=== PATIENT | male | born 1980 | race African-American/Black ===

== ENCOUNTER 2019-03-25 19:03 | Observation (INO) | payer BC ==
[2019-03-25 19:15] VITALS: BMI 59.3
--- NOTE | 2019-03-25 19:16 | PDOC ---
Rapid Medical Evaluation Time Seen by Provider: 03/25/19 19:12 Medical Evaluation: Allergies Allergy/AdvReac Type Severity Reaction Status Date / Time No Known Allergies Allergy Verified 02/11/16 20:01 03/25/19 19:13 This patient had a brief in-person evaluation cc: " I am in a-fib" complaining of palpitations PE: diaphoretic slightly labored breathing appears anxious pedal edema orders: iv access, ekg and labs This patient will proceed to the Ed for further evaluation Discharge Disposition - Diagnosis Palpitations - Referrals - Patient Instructions - Post Discharge Activity
--- NOTE | 2019-03-25 19:41 | PDOC ---
History of Present Illness - General Chief Complaint: Chest Pain Stated Complaint: CHEST PAIN Time Seen by Provider: 03/25/19 19:12 - History of Present Illness Initial Comments: 03/25/19 19:36 38 yo M with h/o HTN, JADIEL, A-fib (on Diltiazem), who p/w retrosternal chest pain , diaphoresis, SOB. Patient reports acute onset of retrosternal, non radiating, chest pressure/discomfort at rest beginning at 3:00 PM and resolving following 1 hour. Also endorses palpitations, leg swelling x 1 day. and Reyes today with no identifiable triggers or alleviators. Endorses adherence to Daily Diltiazem, and Aspirin 325 mg. Denies home Patient denies FARMER, vision change, cough, wheezing, orthopena, PND, leg pain, N/V , F,C, urinary complaints, hematuria, BPR, abdominal pain, diarrhea, constipation, lightheadedness, weakness, sensory changes. PMHx: as noted above. Denies h/o stent placement, CABG. ROS: as noted SHx: Socail Etoh. Last Etoh months ago. Denies tobacco use, IVDA Allergies:NKDA Cardiology: Dr. Sellers PMD: Not on staff 03/25/19 21:16 Past History - Past Medical History Allergies/Adverse Reactions: Allergies Allergy/AdvReac Type Severity Reaction Status Date / Time No Known Allergies Allergy Verified 03/25/19 21:02 Home Medications: Ambulatory Orders Aspirin [ASA -] 325 mg PO DAILY #100 tablet 12/12/14 Diltiazem Cd [Cardizem Cd -] 240 mg PO DAILY #30 cap.cd.24h 12/12/14 Anemia: No Asthma: No Cardiac Disorders: Yes (Atrial Fibrillation) CVA: No COPD: No Dementia: No Diabetes: No HTN: Yes Hypercholesterolemia: No Liver Disease: No Seizures: No Thyroid Disease: No - Surgical History Abdominal Surgery: No Cardiac Surgery: No Cholecystectomy: No Lung Surgery: No Neurologic Surgery: No - Family Disease History Family Disease History: Heart Disease: Father ([place] in his 50s, survived) - Immunization History Immunization Up to Date: Yes - Suicide/Smoking/Psychosocial Hx Smoking Status: No Smoking History: Never smoked Have you smoked in the past 12 months: No Number of Cigarettes Smoked Daily: 0 Hx Alcohol Use: No Drug/Substance Use Hx: No Substance Use Type: None Hx Substance Use Treatment: No Review of Systems - Review of Systems Comments:: 03/25/19 19:39 GENERAL/CONSTITUTIONAL: No fever or chills. No weakness. HEAD, EYES, EARS, NOSE AND THROAT: No change in vision. No ear pain or discharge. No sore throat. CARDIOVASCULAR: + Chest pain,shortness of breath, palpitations RESPIRATORY: No cough, wheezing, or hemoptysis. GASTROINTESTINAL: No nausea, vomiting, diarrhea or constipation. GENITOURINARY: No dysuria, frequency, or change in urination. MUSCULOSKELETAL: No joint or muscle swelling or pain. No neck or back pain. SKIN: No rash NEUROLOGIC: No headache, vertigo, loss of consciousness, or change in strength/ sensation. ENDOCRINE: No increased thirst. No abnormal weight change HEMATOLOGIC/LYMPHATIC: No anemia, easy bleeding, or history of blood clots. ALLERGIC/IMMUNOLOGIC: No hives or skin allergy. *Physical Exam - Vital Signs Last Vital Signs Temp Pulse Resp BP Pulse Ox 98.1 F 78 22 H 178/115 H 96 03/25/19 19:12 03/25/19 19:12 03/25/19 19:12 03/25/19 19:12 03/25/19 19:12 - Physical Exam Comments: 03/25/19 19:40 GENERAL: Awake, alert, and fully oriented, in no acute distress HEAD: Diaphoresis. No signs of trauma, normocephalic, atraumatic EYES: PERRLA, EOMI, sclera anicteric, conjunctiva clear ENT: Hearing grossly normal, nares patent, oropharynx clear without exudates. Moist mucosa NECK: Normal ROM, supple, no lymphadenopathy, JVD, or masses LUNGS:+ Diffuse exp wheezing. Neg Rales. HEART: Regular rate and rhythm, normal S1 and S2, no murmurs, rubs or gallops, peripheral pulses normal and equal bilaterally. ABDOMEN: Soft, nontender, normoactive bowel sounds. No guarding, no rebound. No masses EXTREMITIES :2+ pitting edema. Normal inspection, Normal range of motion. No clubbing or cyanosis. NEUROLOGICAL: Cranial nerves II through XII grossly intact. Normal speech, normal gait, no focal sensorimotor deficits SKIN: Warm, Dry, normal turgor, no rashes or lesions noted Heart Score/ECG Review - History History: Slightly suspicious - Electrocardiogram EKG: Non specific repolarization disturbance - Age Age: </= 45 - Risk Factors Risk Factors Heart Score: Yes Hx Hypercholesterolemia, Yes Hx Hypertension, Yes Positive family hx of cardiac disease, Yes Hx Obesity Based on the list above the patient has:: >/=3 risk factors or Hx atherosclerotic disease - Troponin Troponin: </= normal limit - Score Heart Score - Total: 3 ED Treatment Course - LABORATORY CBC & Chemistry Diagram: 03/25/19 19:52 03/25/19 19:52 Medical Decision Making - Medical Decision Making 03/25/19 19:41 38 yo M with h/o HTN, JADIEL, A-fib (on Diltiazem), who p/w retrosternal chest pain , diaphoresis, SOB. RR 22, BP 178/115, vitals otherwise wnl. Physical exam notable for diaphoresis, diffuse wheezing. ACS/VA r/o. Low risk PE based on Wells criteria. Will evaluate for decompensated heart failure, asthma/COPD, cardiac dysarrythmias, hypoglycemia, electrolyte abnml, metabolic and toxic derangements, acid-base disturbances,PNA/ infection. Ed Course: EKG: A-fib with RvR, incomplete RBBB, with absent EARNESTINE, STD. + LAD. Nml R wave progression. Absent Q waves.Changed from prior EKG (02-13-16). Diltiazem, Methylpred, Xopenex CBC: Unremarkable K+ 3.[address] Harper Israel Admit to tele Dr. Bermudez *DC/Admit/Observation/Transfer Diagnosis at time of Disposition: Palpitations Atrial fibrillation Qualifiers: Atrial fibrillation type: paroxysmal Qualified Code(s): I48.0 - Paroxysmal atrial fibrillation CHF (congestive heart failure) Qualifiers: Heart failure chronicity: acute - Discharge Dispostion Condition at time of disposition: Stable Decision to Admit order: Yes - Referrals Referrals: Bryan Miller [Primary Care Provider] - - Patient Instructions Printed Discharge Instructions: DI for Atypical Chest Pain - Post Discharge Activity
[2019-03-25] MEDS ORDERED: dilTIAZem HCL 50 MG/10 ML - 10 ML VIAL IVPUSH ONE (20:14)
[2019-03-25] MEDS ORDERED: SODIUM CHLORIDE 1,000 ML IV STA (20:14)
[2019-03-25] MEDS ORDERED: LEVALBUTEROL HCL 0.31 MG/3 ML VIAL.NEB IH ONE (20:34)
[2019-03-25 20:35] LABS: HEMATOCRIT 45.6 % (35.4-49); LYMPH % 33.1 % (8-40); MCHC 32.9 g/dl (32.0-35.9); MEAN CELL VOLUME 88.3 fl (80-96); MEAN PLT VOLUME 10.9 fl (7.5-11.1); MONO % 9.9 % (3.8-10.2); RBC 5.17 M/mm3 (4.00-5.60); RDW 14.5 % (11.9-15.9); WHITE BLOOD COUNT 6.8 K/mm3 (4.0-10.0)
[2019-03-25] MEDS ORDERED: methylPREDNISolone NA SUCC 125 MG/2 ML VIAL IVPUSH ONE ×2 (20:36→22:00)
[2019-03-25] MEDS ORDERED: dilTIAZem HCL 50 MG/10 ML - 10 ML VIAL ONE (20:39)
[2019-03-25] MEDS ORDERED: methylPREDNISolone NA SUCC 125 MG/2 ML VIAL ONE ×2 (20:39→21:25)
[2019-03-25 20:45] LABS: INR 1.07 (0.83-1.09); PROTHROMBIN TIME (PATIENT) 12.6 SEC (9.7-13.0)
[2019-03-25 21:04] LABS: PLATELET COUNT 189 K/MM3 (134-434); PLATELET ESTIMATE ADEQUATE
[2019-03-25 21:27] LABS: ALBUMIN 4.2 g/dl (3.4-5.0); ALK PHOS 68 U/L (45-117); ANION GAP 8 MMOL/L (8-16); BILIRUBIN,TOTAL 0.6 mg/dL (0.2-1); BLOOD UREA NITROGEN 9 mg/dL (7-18); CALCIUM 9.3 mg/dL (8.5-10.1); CHLORIDE 104 mmol/L (98-107); CO2 30 mmol/L (21-32); GLUCOSE,RANDOM 86 mg/dL (74-106); N-TERMINAL BNP 24.8 pg/ml (5-125); POTASSIUM 3.2 mmol/L (3.5-5.1); SGOT/AST 23 U/L (15-37); SGPT/ALT 43 U/L (13-61); SODIUM 142 mmol/L (136-145); TOT PROT 8.3 g/dl (6.4-8.2)
[2019-03-25] MEDS ORDERED: DILTIAZEM INJECTION 125 MG in SODIUM CHLORIDE 100 ML IVPB SCH (21:30)
[2019-03-25] MEDS ORDERED: POTASSIUM CHLORIDE TABS 20 MEQ TABLET.ER (FP) PO ONE ×2 (21:50→22:16)
--- NOTE | 2019-03-25 22:20 | HP ---
Admitting History and Physical - Primary Care Physician PCP: None - Admission Chief Complaint: Palpitations and SOB History of Present Illness: Pt is a 38 yo Obese male with PMHx of HTN, afib, presenting with palpitations and SOB x 1 day. Pt reported palpitations associated with rapid heart rate noted on pulse oximetry today while laying down. There was associated SOB, worse with exertion and relieved with rest. Patient reported a vague chest. Patient has also noted recurrent bilateral leg swelling, worse over the past 3 days ( not resolving in the am). Pt reports compliance on diltiazem and ASA, last dose today. He endorses poor diet (increased take out), but no fevers, no cough, no URTI, no dysuria or change in bowel habits. Patient was diagnosed with afib since 2002, has never been cardioverted or on AC. Pt reports similar symptoms in June 2018. He has had stress ECHO in past but missed a recently scheduled follow up with his aspnet developer Dr Sellers. He presented with afib with RVR-HR up to 140s with BP up to 178/115 EKG: afib with RVR-130, LAD, no EARNESTINE/STD, poor Rwave progression, QTC-459 Hypokalemia 3.2 In the ED he received iv solumed, levalbuterol, iv diltiazem and then was put on a ditiazem drip, potassium Since being in the ED, the SOB has since improved ECHO 2016: Mitral calcification, concentric hypertrophy, Mild MR History Source: Patient Limitations to Obtaining History: No Limitations - Past Medical History Cardiovascular: Yes: AFIB, HTN Musculoskeletal: Yes: Other - Past Surgical History Past Surgical History: Yes: None - Smoking History Smoking history: Never smoked Have you smoked in the past 12 months: No Aproximately how many cigarettes per day: 0 - Alcohol/Substance Use Hx Alcohol Use: No - Social History ADL: Independent Home Medications - Allergies Allergies/Adverse Reactions: Allergies Allergy/AdvReac Type Severity Reaction Status Date / Time No Known Allergies Allergy Verified 03/25/19 21:02 - Home Medications Home Medications: Ambulatory Orders Aspirin [ASA -] 325 mg PO DAILY #100 tablet 12/12/14 Diltiazem Cd [Cardizem Cd -] 240 mg PO DAILY #30 cap.cd.24h 12/12/14 Review of Systems - Review of Systems Constitutional: denies: Chills, Diaphoresis, Fever, Lethargy Eyes: denies: Blurred Vision HENT: denies: Difficult Swallowing Cardiovascular: reports: Chest Pain, Edema, Palpitations, Shortness of Breath Respiratory: reports: Exercise Intolerance, SOB on Exertion. denies: Cough, Hemoptysis, Orthopnea, Wheezing Gastrointestinal: denies: Abdominal Pain, Constipation Genitourinary: denies: Burning, Dysuria Neurological: denies: Change in LOC, Change in Speech, Confusion, Dizziness Endocrine: denies: Excessive Sweating Hematology/Lymphatic: denies: No Symptoms Psychiatric: denies: No Symptoms Physical Examination Vital Signs: Vital Signs Temperature 98.1 F 03/25/19 19:12 Pulse Rate 139 H 03/25/19 22:10 Respiratory Rate 20 03/25/19 20:53 Blood Pressure 153/10 L 03/25/19 22:10 O2 Sat by Pulse Oximetry (%) 95 03/25/19 20:53 Constitutional: Yes: No Distress, Calm, Obese Eyes: Yes: Conjunctiva Clear, EOM Intact, PERRL HENT: Yes: Atraumatic Neck: Yes: Supple Cardiovascular: Yes: Tachycardia, Pulse Irregular, S1, S2 Respiratory: Yes: CTA Bilaterally Gastrointestinal: Yes: Normal Bowel Sounds, Abdomen, Obese Edema: Yes Edema: LLE: Trace, RLE: Trace Peripheral Pulses WNL: Yes Neurological: Yes: Alert, Oriented. No: Confusion, Dysarthria, Facial Droop, Lethargy Psychiatric: Yes: Alert, Oriented Labs: CBC, BMP 03/25/19 19:52 03/25/19 19:52 Imaging - Results Chest X-ray: Image Reviewed Assessment/Plan Assessment /Plan Pt is a 38 yo Obese male with PMHx of HTN, afib, presenting with palpitations and SOB x 1 day. Assessment: HTN Afib w/RVR HTNsive Emergency SOB R/O ACS Morbid Obesity Plan: Afib w/RVR- could be due to electrolyte imbalance- hypkalemia, corrected, check Mg Afib also in setting of HTNsive emergency Cont diltiazem Lisinopril 20mg stat Cont ditiazem 240 ER Stop ditiazem drip Metoprolol 50mg PO for HR >110 ECHO Cardio consult CHADVASC-1, on ASA SOB R/O ACS Trend trops Initial trop negative D dimer <500 CXR- no congestive changes BNP 200s Could be in setting of increase demand with RVR Morbid obesity Sodium controlled diet Needs referral for bariatric sx Lipid profile HgbA1c HTN Stat Lisinopril 20mg Sodium controlled diet Diet and exercise FEN No standing fluids Monitor lytes repelte as needed Sodium controlled diet PPx Heparin sq Tele obs Visit type - Emergency Visit Emergency Visit: Yes ED Registration Date: 03/25/19 Care time: The patient presented to the Emergency Department on the above date and was hospitalized for further evaluation of their emergent condition. - New Patient This patient is new to me today: Yes Date on this admission: 03/26/19 - Critical Care Critical Care patient: No
--- NOTE | 2019-03-25 22:27 | PDOC ---
Documentation entered by Mckenzie Michelle SCRIBE, acting as scribe for Alfreda Monsalev DO. Alfreda Monsalve DO: This documentation has been prepared by the Viviana roberts Adrianna, SCRIBE, under my direction and personally reviewed by me in its entirety. I confirm that the documentation accurately reflects all work, treatment, procedures, and medical decision making performed by me. Attending Attestation - Resident Resident Name: Leeroy Black - ED Attending Attestation I have performed the following: I have examined & evaluated the patient, The case was reviewed & discussed with the resident, I agree w/resident's findings & plan - HPI HPI: The patient is a 38 year old male, with a significant PMH of obesity, hypertension, hyperlipidemia, and Afib (on Diltiazem), who presents to the emergency department today complaining of chest pain for a couple of hours. Patient describes his chest pain as a pressure, which is intermittent, severe , and most prominent retrosternal. He notes his chest pain lasted for one hour then self-resolved. Patient endorses associated diaphoresis and dyspnea on exertion. Patient reports having an ECHO done 2 years ago, which was unremarkable at that time. He endorses taking all of his daily medications today. The patient denies headache and dizziness. Denies fever, chills, nausea, vomit, diarrhea and constipation. Denies dysuria, frequency, urgency and hematuria. Allergies: NKA Past surgical history: None reported Social history: Occasional social EtOH consumption (but notes he hasnt drank in the past 2 months). Denies illicit drug use. PCP: Dr. Bryan Miller Customs Patrol Officer: Dr. Richmond Sellers 03/25/19 20:35 - Physicial Exam PE: Agree with resident exam. 03/25/19 20:35 - Critical Care Time Total Critical Care Time: 90 Critical Care Statement: The care of this patient involved high complexity decision making to prevent further life threatening deterioration of the patient 's condition and/or to evaluate & treat vital organ system(s) failure or risk of failure. - Medical Decision Making 03/25/19 22:25 38-year-old male with chest pain and palpitations found to be in rapid atrial fibrillation on arrival Troponin and BNP are within normal limits Patient was found be mildly hypokalemic Ventricular rate decreased to the 120s after a 20 mg IV push of Cardizem Patient currently on a fixed rate Cardizem drip at 5 mg per hour Plan for admission to telemetry for further management
[2019-03-25] MEDS ORDERED: METOPROLOL TARTRATE 5 MG/5 ML VIAL IVPUSH ONE (22:35)
[2019-03-26] MEDS ORDERED: LISINOPRIL 20 MG TABLET (FP) ONE (00:43)
[2019-03-26] MEDS ORDERED: METOPROLOL TARTRATE 50 MG TABLET (FP) ONE (00:44)
--- NOTE | 2019-03-26 00:45 | PN ---
Teaching Attending Note Name of Resident: Harper Gaytan ATTENDING PHYSICIAN STATEMENT I saw and evaluated the patient. Chart, data, imaging reviewed. I reviewed the resident's note and discussed the case with the resident. I agree with the resident's findings and plan as documented. SUBJECTIVE: 38 yo morbidly obese man w/ afib c/o palpipations and SOB x1 day, starting sponteneously. Only on ER diltiazem and ASA at home. Reports compliance with his meds. Was given diltiazem push and then drip in ER with better rate control. OBJECTIVE: Last Vital Signs Temp Pulse Resp BP Pulse Ox 97.9 F 82 18 186/104 H 95 03/26/19 00:29 03/26/19 00:29 03/25/19 23:00 03/26/19 00:29 03/26/19 00:29 gen-morbidly obese heent- ac, nc neck supple abd- soft, nt Abnormal Lab Results 03/25/19 19:52 Potassium 3.2 L Total Protein 8.3 H cxr, ekg reviewed ASSESSMENT AND PLAN: #Uncontrolled afib with RVR- may be secondary to severe uncontrolled hypertension vs electrolyte imbalance (hypokaalemia, r/o hypo-mag). R/o illicit drugs- cocaine. R/o new structural heart deformities. CHADSVASCS2 score is 1. ACS should also be ruled out- SOB, morbid obesity,underlying arrythmia. -tele-obs -trend trops -echo -bp control -diltiazem ER home dose -metoprolol 50mg PO prn for better rate control -can stop diltiazem drip -ASA #Severe HTN -c/w diltazem -add lisinopril -titrate anti- htn meds accordingly -low Na diet -send a1c -send lipid panel #Morbid obesity -counseled patient on diet -recommended bariatric surgery -heparin sc for dvt ppx
[2019-03-26] MEDS: METOPROLOL TARTRATE 50 MG TABLET (FP) PO SCH ×2 (00:50→09:49)
[2019-03-26] MEDS: LISINOPRIL 20 MG TABLET (FP) PO SCH ×2 (00:50→09:49)
[2019-03-26] MEDS ORDERED: HEPARIN NA (PORCINE) 5,000 UNITS/ML 1ML VIAL ONE (04:51)
[2019-03-26] MEDS ORDERED: HEPARIN NA (PORCINE) 5,000 UNITS/ML 1ML VIAL SQ SCH (06:00)
[2019-03-26 06:09] VITALS: TEMP 97.5
[2019-03-26 06:16] LABS: HEMATOCRIT 45.1 % (35.4-49); MCH 29.4 pg (25.7-33.7); MCHC 33.2 g/dl (32.0-35.9); MEAN CELL VOLUME 88.6 fl (80-96); MEAN PLT VOLUME 10.5 fl (7.5-11.1); PLATELET COUNT 214 K/MM3 (134-434); RBC 5.09 M/mm3 (4.00-5.60); RDW 14.5 % (11.9-15.9); WHITE BLOOD COUNT 8.6 K/mm3 (4.0-10.0)
[2019-03-26 06:39] LABS: ALBUMIN 4.1 g/dl (3.4-5.0); BILIRUBIN,TOTAL 0.4 mg/dL (0.2-1); CALCIUM 9.8 mg/dL (8.5-10.1); CREATININE 1.2 mg/dL (0.55-1.3); MAGNESIUM 2.3 mg/dL (1.8-2.4); POTASSIUM 3.7 mmol/L (3.5-5.1); TOT PROT 8.2 g/dl (6.4-8.2)
[2019-03-26 06:49] LABS: CHOLESTEROL 177 mg/dL (50-200); HDL CHOLESTEROL 55 mg/dL (40-60); TRIGLYCERIDES 42 mg/dL (0-150)
[2019-03-26] MEDS ORDERED: ASPIRIN 325 MG TABLET PO SCH (10:00)
--- NOTE | 2019-03-26 10:00 | EKG ---
Test Reason : Blood Pressure : / mmHG Vent. Rate : 130 BPM Atrial Rate : 119 BPM P-R Int : 000 ms QRS Dur : 096 ms QT Int : 312 ms P-R-T Axes : 000 -43 025 degrees QTc Int : 459 ms POOR DATA QUALITY, INTERPRETATION MAY BE ADVERSELY AFFECTED ATRIAL FIBRILLATION WITH RAPID VENTRICULAR RESPONSE LEFT AXIS DEVIATION PULMONARY DISEASE PATTERN INCOMPLETE RIGHT BUNDLE BRANCH BLOCK NONSPECIFIC ST AND T WAVE ABNORMALITY ABNORMAL ECG WHEN COMPARED WITH ECG OF 13-FEB-2016 17:12, SIGNIFICANT CHANGES HAVE OCCURRED Confirmed by MD NEL, ANAND ([id number]) on 03/26/2019 10:00:27 AM Referred By: Confirmed By:ANAND NEUMANN MD
--- NOTE | 2019-03-26 10:54 | ECHO ---
Version: 1 Name: SRIDHAR RIVAS Exam: Adult Echocardiogram Study Date: 03/26/2019, 9:47 AM Age: 38 Years MMode/2D Measurements & Calculations IVSd: 1.40 cm LVIDs: 3.4 cm LVIDd: 5.8 cm LVPWd: 1.22 cm LVOT diam: 2.26 cm Ao root diam: 3.4 cm LA dimension: 3.7 cm Doppler Measurements & Calculations MV E max flako: 91.2 cm/sec Med E/e': 11.6 MV A max flako: 73.2 cm/sec Med Peak E' Flako: 7.8 cm/sec MV E/A: 1.25 Lat E/e': 10.1 Lat Peak E' Flako: 9.0 cm/sec Ao max P.6 mmHg Ao V2 max: 146.6 cm/sec Left Ventricle The left ventricular size, thickness and function are normal. Right Ventricle The right ventricle is normal in size and function. Atria Normal left and right atrial size and function. Mitral Valve There is mild mitral annular calcification. There is trace to mild mitral regurgitation. Tricuspid Valve The tricuspid valve is not well visualized. Aortic Valve The aortic valve is not well visualized. Pulmonic Valve The pulmonic valve is not well visualized. Great Vessels The aortic root is normal size. Normal aortic arch, descending and ascending aorta. Pericardium/Pleura There is no pericardial effusion. Tech Comments Suboptimal study. Summary Statements The left ventricular size, thickness and function are normal The right ventricle is normal in size and function. Normal left and right atrial size and function. There is mild mitral annular calcification. There is trace to mild mitral regurgitation. The tricuspid valve is not well visualized. The aortic valve is not well visualized. The pulmonic valve is not well visualized. The aortic root is normal size. Normal aortic arch, descending and ascending aorta There is no pericardial effusion. Luca Hinojosa 03/26/2019, 9:54 AM Ordering Physician: MARIANNE ACUNA Performed By: Karey Brito
--- NOTE | 2019-03-26 12:13 | CON.CARD ---
Consult Consult Specialty:: Cardiology Referred by:: Medicine Reason for Consultation:: afib - History of Present Illness Chief Complaint: shortness of breath History of Present Illness: 38M h/o obesity, HTN, afib with palps, sob, edema for one day. Sees Dr. Sellers for cardio. [place] like feet were swelling for two days, he gets intermittently but normally resolves within hours. In morning yesterday he took his regular dose of cardizem, later in the day felt palps, short of breath and took a second dose of cardizem. He occasionally has similar epsodes which resolve shortly after taking a second dose of cardizem, however this time did not get better and felt chest tightness so came to the ER. Noted to be in afib with rvr rates 140s-150s with BP 178/115, received IV cardizem, cardizem gtt. Now in sinus, symptoms resolved. - Past Medical History Cardio/Vascular: Yes: AFIB, HTN Musculoskeletal: Yes: Other - Past Surgical History Past Surgical History: Yes: None - Alcohol/Substance Use Hx Alcohol Use: No - Smoking History Smoking history: Never smoked Have you smoked in the past 12 months: No Aproximately how many cigarettes per day: 0 - Social History ADL: Independent Home Medications - Allergies Allergies/Adverse Reactions: Allergies Allergy/AdvReac Type Severity Reaction Status Date / Time No Known Allergies Allergy Verified 03/25/19 21:02 - Home Medications Home Medications: Ambulatory Orders Aspirin [ASA -] 325 mg PO DAILY #100 tablet 12/12/14 Diltiazem Cd [Cardizem Cd -] 240 mg PO DAILY #30 cap.cd.24h 12/12/14 Family Disease History - Family Disease History Family History: Unremarkable Review of Systems - Review of Systems Constitutional: reports: No Symptoms Eyes: reports: No Symptoms HENT: reports: No Symptoms Neck: reports: No Symptoms Cardiovascular: reports: No Symptoms Respiratory: reports: No Symptoms Gastrointestinal: reports: No Symptoms Genitourinary: reports: No Symptoms Musculoskeletal: reports: No Symptoms Integumentary: reports: No Symptoms Neurological: reports: No Symptoms Endocrine: reports: No Symptoms Hematology/Lymphatic: reports: No Symptoms Psychiatric: reports: No Symptoms Vital Signs: Vital Signs Temperature 97.5 F L 03/26/19 06:05 Pulse Rate 75 03/26/19 06:05 Respiratory Rate 18 03/26/19 06:05 Blood Pressure 148/85 03/26/19 06:05 O2 Sat by Pulse Oximetry (%) 96 03/26/19 06:05 Constitutional: Yes: Well Nourished, No Distress, Calm Eyes: Yes: Conjunctiva Clear, EOM Intact HENT: Yes: Atraumatic, Normocephalic Neck: Yes: Supple, Trachea Midline Respiratory: Yes: Regular, CTA Bilaterally Gastrointestinal: Yes: Normal Bowel Sounds, Soft Cardiovascular: Yes: Regular Rate and Rhythm JVD: No Carotid Bruit: No PMI: Non-Displaced Heart Sounds: Yes: S1, S2 Murmur: No: Systolic Murmur Musculoskeletal: No: Back Pain Extremities: No: Cold Edema: No Peripheral Pulses WNL: Yes Peripheral Pulses: 2+ Left Doralis Pedis, 2+ Right Dorsalis Pedis Integumentary: No: Jaundice Neurological: Yes: Alert, Oriented Psychiatric: No: Agitated - Other Data Labs, Other Data: CBC, BMP 03/26/19 05:40 03/26/19 05:40 INR, PTT INR 1.07 (0.83-1.09) 03/25/19 19:52 Troponin, BNP 03/25/19 03/26/19 03/26/19 19:52 02:55 05:40 Troponin I < 0.02 < 0.02 < 0.02 B-Natriuretic Peptide 24.8 Troponin, BNP 03/25/19 03/26/19 03/26/19 19:52 02:55 05:40 Troponin I < 0.02 < 0.02 < 0.02 B-Natriuretic Peptide 24.8 Assessment/Plan EKG: afib with RVR, no ischemic changes echo 03/2019 nl LV/RV function, mild MR tele: afib with rvr ->sinus afib with rvr - now in sinus - in setting of hypokalemia - now resolved, has had poor PO intake this week and abdominal pain as well - continue diltiazem, aspirin - CHADSVasc 1 sob - trop neg x 2, EKG no ischemic changes - BNP 24 - likely in setting of afib with rvr, now resolved - echo unremarkable HTN - improved with diltiazem, lisinopril, continue
--- NOTE | 2019-03-26 12:35 | PN ---
Physical Exam: SUBJECTIVE: Patient seen and examined OBJECTIVE: Vital Signs Period Temp Pulse Resp BP Sys/Marley Pulse Ox Last 24 Hr 97.5 F-98.1 F 71-139 18-23 133-186/10-123 92-96 GENERAL: The patient is awake, alert, and fully oriented, in no acute distress. HEAD: Normal with no signs of trauma. EYES: PERRL, extraocular movements intact, sclera anicteric, conjunctiva clear. No ptosis. ENT: Ears normal, nares patent, oropharynx clear without exudates, moist mucous membranes. NECK: Trachea midline, full range of motion, supple. LUNGS: Breath sounds equal, clear to auscultation bilaterally, no wheezes, no crackles, no accessory muscle use. HEART: Regular rate and rhythm, S1, S2 without murmur, rub or gallop. ABDOMEN: Soft, nontender, nondistended, normoactive bowel sounds, no guarding, no rebound, no hepatosplenomegaly, no masses. EXTREMITIES: 2+ pulses, warm, well-perfused, no edema. NEUROLOGICAL: Cranial nerves II through XII grossly intact. Normal speech, gait not observed. PSYCH: Normal mood, normal affect. SKIN: Warm, dry, normal turgor, no rashes or lesions noted Laboratory Results - last 24 hr 03/25/19 03/25/19 03/25/19 19:52 19:52 19:52 WBC 6.8 RBC 5.17 Hgb 15.0 Hct 45.6 MCV 88.3 MCH 29.0 MCHC 32.9 RDW 14.5 Plt Count 189 D MPV 10.9 Absolute Neuts (auto) 3.5 Neutrophils % 52.0 D Lymphocytes % 33.1 D Monocytes % 9.9 Eosinophils % 4.0 D Basophils % 1.0 Nucleated RBC % 0 Platelet Estimate Adequate Platelet Comment No clumping noted PT with INR 12.60 INR 1.07 PTT (Actin FS) 34.0 D-Dimer Sodium 142 Potassium 3.2 L Chloride 104 Carbon Dioxide 30 Anion Gap 8 BUN 9 Creatinine 1.0 Est GFR (CKD-EPI)AfAm 108.63 Est GFR (CKD-EPI)NonAf 93.73 Random Glucose 86 Hemoglobin A1c % Calcium 9.3 Magnesium Total Bilirubin 0.6 AST 23 ALT 43 Alkaline Phosphatase 68 Creatine Kinase Creatine Kinase Index CK-MB (CK-2) Troponin I < 0.02 B-Natriuretic Peptide 24.8 Total Protein 8.3 H Albumin 4.2 Triglycerides Cholesterol Total LDL Cholesterol HDL Cholesterol TSH 03/25/19 03/25/19 03/26/19 21:01 21:01 02:55 WBC RBC Hgb Hct MCV MCH MCHC RDW Plt Count MPV Absolute Neuts (auto) Neutrophils % Lymphocytes % Monocytes % Eosinophils % Basophils % Nucleated RBC % Platelet Estimate Platelet Comment PT with INR INR PTT (Actin FS) D-Dimer 251 Sodium Potassium Chloride Carbon Dioxide Anion Gap BUN Creatinine Est GFR (CKD-EPI)AfAm Est GFR (CKD-EPI)NonAf Random Glucose Hemoglobin A1c % Calcium Magnesium 2.2 Total Bilirubin AST ALT Alkaline Phosphatase Creatine Kinase Creatine Kinase Index CK-MB (CK-2) Troponin I B-Natriuretic Peptide Total Protein Albumin Triglycerides Cholesterol Total LDL Cholesterol HDL Cholesterol TSH 1.55 03/26/19 03/26/19 03/26/19 02:55 02:55 05:40 WBC 8.6 RBC 5.09 Hgb 15.0 Hct 45.1 MCV 88.6 MCH 29.4 MCHC 33.2 RDW 14.5 Plt Count 214 MPV 10.5 Absolute Neuts (auto) Neutrophils % Lymphocytes % Monocytes % Eosinophils % Basophils % Nucleated RBC % Platelet Estimate Platelet Comment PT with INR INR PTT (Actin FS) D-Dimer Sodium Potassium Chloride Carbon Dioxide Anion Gap BUN Creatinine Est GFR (CKD-EPI)AfAm Est GFR (CKD-EPI)NonAf Random Glucose Hemoglobin A1c % 5.9 Calcium Magnesium Total Bilirubin AST ALT Alkaline Phosphatase Creatine Kinase 259 Creatine Kinase Index 1.3 CK-MB (CK-2) 3.6 Troponin I < 0.02 B-Natriuretic Peptide Total Protein Albumin Triglycerides Cholesterol Total LDL Cholesterol HDL Cholesterol TSH 03/26/19 03/26/19 03/26/19 05:40 05:40 05:40 WBC RBC Hgb Hct MCV MCH MCHC RDW Plt Count MPV Absolute Neuts (auto) Neutrophils % Lymphocytes % Monocytes % Eosinophils % Basophils % Nucleated RBC % Platelet Estimate Platelet Comment PT with INR INR PTT (Actin FS) D-Dimer Sodium 141 Potassium 3.7 Chloride 106 Carbon Dioxide 27 Anion Gap 8 BUN 12 Creatinine 1.2 Est GFR (CKD-EPI)AfAm 87.14 Est GFR (CKD-EPI)NonAf 75.19 Random Glucose 143 H Hemoglobin A1c % Calcium 9.8 Magnesium 2.3 Total Bilirubin 0.4 AST 18 ALT 43 Alkaline Phosphatase 68 Creatine Kinase 240 Creatine Kinase Index 1.5 CK-MB (CK-2) 3.8 H Troponin I < 0.02 B-Natriuretic Peptide Total Protein 8.2 Albumin 4.1 Triglycerides 42 Cholesterol 177 Total LDL Cholesterol 110 H HDL Cholesterol 55 TSH Active Medications Generic Name Dose Route Start Last Admin Trade Name Freq PRN Reason Stop Dose Admin Aspirin 325 mg 03/26/19 10:00 03/26/19 09:49 Asa - PO 325 mg DAILY HANNA Administration Diltiazem HCl 360 mg 03/27/19 10:00 Cardizem Cd - PO DAILY [facility] Heparin Sodium (Porcine) 5,000 unit 03/26/19 06:00 03/26/19 06:05 Heparin - SQ 5,000 unit TID HANNA Administration Lisinopril 20 mg 03/25/19 23:49 03/26/19 09:49 Prinivil PO 20 mg DAILY HANNA Administration ASSESSMENT/PLAN:
--- NOTE | 2019-03-26 14:02 | PN ---
Teaching Attending Note Name of Resident: Chris Avelar ATTENDING PHYSICIAN STATEMENT I saw and evaluated the patient. I reviewed the resident's note and discussed the case with the resident. I agree with the resident's findings and plan as documented. SUBJECTIVE: No fever or chills. No FARMER, no palpitations and no SOB . OBJECTIVE: NAD, morbidly obese CV: RRR. LUngs: CTAB ext : trace edema ASSESSMENT AND PLAN: 38 y/o man with h/o morbid obesity, Afib on asa who presented with palpitations and chest tightness and was found to have A fib with RVR 1- A fib with RVR: - increase cardizem to 360 - dc BB that was started last night - CHADS VASC 1 , discussed with him risk of score and his choice of AC to prevent a stroke. He declined full AC with coumadin or any other agent. will cont asa - further d/w card as out pt - echo reviwed. - hypokalemia resolved 2- HTN urgency: - improved on lisinopril . will cont at dc - BMP as out pt , if hypokalemia persists, then he will need w/u for secondary causes of HTN 3- LDL of 110. 10 yr risk for CAD is 1.3 %. no need for statins 4- MRobid obesity, counseled dispo : Dc home . d/w Dr. Ortiz
[2019-03-26 15:03] VITALS: BP 161/90; PULSE 80
--- NOTE | 2019-03-26 15:21 | DS ---
Physical Exam: SUBJECTIVE: Patient seen and examined at bedside. Denies chest pain or shortness of breath. OBJECTIVE: Vital Signs Period Temp Pulse Resp BP Sys/Marley Pulse Ox Last 24 Hr 97.5 F-98.1 F 71-139 18-23 133-186/10-123 92-96 PHYSICAL EXAM GENERAL: AAOx3 NAD HEAD: Normal with no signs of trauma. LUNGS: Distant breath sounds HEART: RRR S1S2 ABDOMEN: Obese Nontender Nondistended NEUROLOGICAL: Cranial nerves II through XII grossly intact. Normal speech, gait not observed. PSYCH: Normal mood, normal affect. SKIN: Warm, dry, normal turgor, no rashes or lesions noted. LABS Laboratory Results - last 24 hr 03/25/19 03/25/19 03/25/19 19:52 19:52 19:52 WBC 6.8 RBC 5.17 Hgb 15.0 Hct 45.6 MCV 88.3 MCH 29.0 MCHC 32.9 RDW 14.5 Plt Count 189 D MPV 10.9 Absolute Neuts (auto) 3.5 Neutrophils % 52.0 D Lymphocytes % 33.1 D Monocytes % 9.9 Eosinophils % 4.0 D Basophils % 1.0 Nucleated RBC % 0 Platelet Estimate Adequate Platelet Comment No clumping noted PT with INR 12.60 INR 1.07 PTT (Actin FS) 34.0 D-Dimer Sodium 142 Potassium 3.2 L Chloride 104 Carbon Dioxide 30 Anion Gap 8 BUN 9 Creatinine 1.0 Est GFR (CKD-EPI)AfAm 108.63 Est GFR (CKD-EPI)NonAf 93.73 Random Glucose 86 Hemoglobin A1c % Calcium 9.3 Magnesium Total Bilirubin 0.6 AST 23 ALT 43 Alkaline Phosphatase 68 Creatine Kinase Creatine Kinase Index CK-MB (CK-2) Troponin I < 0.02 B-Natriuretic Peptide 24.8 Total Protein 8.3 H Albumin 4.2 Triglycerides Cholesterol Total LDL Cholesterol HDL Cholesterol TSH 03/25/19 03/25/19 03/26/19 21:01 21:01 02:55 WBC RBC Hgb Hct MCV MCH MCHC RDW Plt Count MPV Absolute Neuts (auto) Neutrophils % Lymphocytes % Monocytes % Eosinophils % Basophils % Nucleated RBC % Platelet Estimate Platelet Comment PT with INR INR PTT (Actin FS) D-Dimer 251 Sodium Potassium Chloride Carbon Dioxide Anion Gap BUN Creatinine Est GFR (CKD-EPI)AfAm Est GFR (CKD-EPI)NonAf Random Glucose Hemoglobin A1c % Calcium Magnesium 2.2 Total Bilirubin AST ALT Alkaline Phosphatase Creatine Kinase Creatine Kinase Index CK-MB (CK-2) Troponin I B-Natriuretic Peptide Total Protein Albumin Triglycerides Cholesterol Total LDL Cholesterol HDL Cholesterol TSH 1.55 03/26/19 03/26/19 03/26/19 02:55 02:55 05:40 WBC 8.6 RBC 5.09 Hgb 15.0 Hct 45.1 MCV 88.6 MCH 29.4 MCHC 33.2 RDW 14.5 Plt Count 214 MPV 10.5 Absolute Neuts (auto) Neutrophils % Lymphocytes % Monocytes % Eosinophils % Basophils % Nucleated RBC % Platelet Estimate Platelet Comment PT with INR INR PTT (Actin FS) D-Dimer Sodium Potassium Chloride Carbon Dioxide Anion Gap BUN Creatinine Est GFR (CKD-EPI)AfAm Est GFR (CKD-EPI)NonAf Random Glucose Hemoglobin A1c % 5.9 Calcium Magnesium Total Bilirubin AST ALT Alkaline Phosphatase Creatine Kinase 259 Creatine Kinase Index 1.3 CK-MB (CK-2) 3.6 Troponin I < 0.02 B-Natriuretic Peptide Total Protein Albumin Triglycerides Cholesterol Total LDL Cholesterol HDL Cholesterol TSH 03/26/19 03/26/19 03/26/19 05:40 05:40 05:40 WBC RBC Hgb Hct MCV MCH MCHC RDW Plt Count MPV Absolute Neuts (auto) Neutrophils % Lymphocytes % Monocytes % Eosinophils % Basophils % Nucleated RBC % Platelet Estimate Platelet Comment PT with INR INR PTT (Actin FS) D-Dimer Sodium 141 Potassium 3.7 Chloride 106 Carbon Dioxide 27 Anion Gap 8 BUN 12 Creatinine 1.2 Est GFR (CKD-EPI)AfAm 87.14 Est GFR (CKD-EPI)NonAf 75.19 Random Glucose 143 H Hemoglobin A1c % Calcium 9.8 Magnesium 2.3 Total Bilirubin 0.4 AST 18 ALT 43 Alkaline Phosphatase 68 Creatine Kinase 240 Creatine Kinase Index 1.5 CK-MB (CK-2) 3.8 H Troponin I < 0.02 B-Natriuretic Peptide Total Protein 8.2 Albumin 4.1 Triglycerides 42 Cholesterol 177 Total LDL Cholesterol 110 H HDL Cholesterol 55 TSH HOSPITAL COURSE: Date of Admission:03/25/19 Pt is a 38 yo Obese male with PMHx of HTN, afib, who presented to [facility] due to palpitations and SOB x 1 day. Pt was found to be in atrial fibrillation with RVR. Troponin and BNP were within normal limits. BP was 184/104 at peak. Pt was administered Cardizem 20 mg IVPUSH as well as placed on a cardizem drip. Pt was also placed on lisinopril 20 mg. Pt's potassium level was 3.2 and subsequently received 40 meq of k-dur. Pt was noted to be in sinus rhythm after cardizem drip started and discharged home with instructions to increase his diltiazem home medication to 360 daily and to continue lisinopril and aspirin. Pt declined anticoagulation with Coumadin or any other agent other than aspirin. Date of Discharge: 03/26/19 Minutes to complete discharge: 35 Discharge Summary Reason For Visit: CONGESIVE HEART FAILURE,ATRIAL FIBRILLATION, Current Active Problems Atrial fibrillation with rapid ventricular response (Acute) CHF (congestive heart failure) (Acute) Palpitations (Acute) Atrial fibrillation (Chronic) Condition: Improved - Instructions Diet, Activity, Other Instructions: You presented to the hospital due to an irregular heart beat called Atrial fibrillation. You were also found to have severely elevated blood pressure. please follow up with your milk sampler this week, Dr Sellers. Please follow up with your primary care doctor this week. If you do not have a primary care doctor, you may follow up with our medical clinic. A referral has been provided for you in your discharge papers. please discuss with your milk sampler, the option of anticoagulation Your Cardizem was increased to 360 mg Daily. You have been placed on a new medication called Lisinopril. Take this medication daily. you need blood work in 1 week ( chemistry ) , please do at any lab near home and fax results to your tray checker Please return to the emergency room immediately if you begin to experience palpitations, chest pain, or shortness of breath. Referrals: Glenn Heller MD [Staff Physician] - Richmond Sellers MD [Staff Physician] - 1 Week Disposition: HOME - Home Medications Comprehensive Discharge Medication List: Ambulatory Orders Aspirin 81 mg PO DAILY #30 tab.chew 03/26/19 Diltiazem HCl [Diltiazem ER] 360 mg PO DAILY #30 capsule.er 03/26/19 Lisinopril [Prinivil] 20 mg PO DAILY #30 tablet 03/26/19 Miscellaneous Medical Supply [Outpatient Order] 1 each ASDIR #1 misc 06/04/ 19 This patient is new to me today: Yes Date on this admission: 03/26/19 Emergency Visit: Yes ED Registration Date: 03/25/19 Care time: The patient presented to the Emergency Department on the above date and was hospitalized for further evaluation of their emergent condition. Critical Care patient: No - Discharge Referral Referred to [facility] Med P.C.: No
== END 2019-03-26 16:04 | disposition home or self-care (01) ==
LOC: JER 19:03 → JERBED 21:14 → INTOOBSV 21:14 → UNDOADMOB 21:14 → JERBED 23:21
PROVIDERS: ADMIT Internal Medicine; ATTEND Internal Medicine
PROC: 3E0333Z Introduction of Anti-inflammatory into Peripheral Vein, Percutaneous Approach (ICD-10-PCS; principal; 2019-03-25)
PROC: 3E033GC Introduction of Other Therapeutic Substance into Peripheral Vein, Percutaneous Approach (ICD-10-PCS; 2019-03-25)
PROC: 3E0337Z Introduction of Electrolytic and Water Balance Substance into Peripheral Vein, Percutaneous Approach (ICD-10-PCS; 2019-03-25)
PROC: 3E013GC Introduction of Other Therapeutic Substance into Subcutaneous Tissue, Percutaneous Approach (ICD-10-PCS; 2019-03-25)
PROC: 3E0F7GC Introduction of Other Therapeutic Substance into Respiratory Tract, Via Natural or Artificial Opening (ICD-10-PCS; 2019-03-25)
DX: I48.0 Paroxysmal atrial fibrillation (principal); R00.2 Palpitations; I10 Essential (primary) hypertension; I16.1 Hypertensive emergency; G47.33 Obstructive sleep apnea (adult) (pediatric); I45.10 Unspecified right bundle-branch block; E66.01 Morbid (severe) obesity due to excess calories; Z68.43 Body mass index [BMI] 50.0-59.9, adult; Z79.82 Long term (current) use of aspirin
CPT/HCPCS: 36415; 71045-TC-FY; 80053; 80061; 82550; 82553; 83036; 83721; 83735; 83880; 84443; 84484; 85025; 85027; 85379; 85610; 85730; 93005; 93010; 93306-TC; 99285-25; G0378; J1644

== ENCOUNTER 2019-04-04 21:39 | Emergency (ER) | payer BC | END 2019-04-05 03:41 | disposition home or self-care (01) | LOC: JER 04-05 03:41 | DX: R09.89 Other specified symptoms and signs involving the circulatory and respiratory systems (principal); I48.91 Unspecified atrial fibrillation; Z79.82 Long term (current) use of aspirin; I10 Essential (primary) hypertension ==